=== PATIENT | female | born 1995 | race African-American/Black ===

== ENCOUNTER 2017-06-10 11:51 | Emergency (ER) | payer OTHER ==
[~2017-06-10] VITALS: Ht 160 cm; Wt 59.0 kg
[~2017-06-10 11:51] MED LIST: IBUPROFEN 400400 M1 PO; IBUPROFEN 600600 M1 PO; NAPROSYN500 MG PO; ULTRAM 50MG TAB50 MG PO; ZPAK PO
[2017-06-10 13:08] LABS: URINE BILIRUBIN NEGATIVE (Negative); URINE BLOOD NEGATIVE (Negative); URINE GLUCOSE-RANDOM* NEGATIVE (Negative); URINE KETONES NEGATIVE (Negative); URINE NITRITE NEGATIVE (Negative); URINE PROTEIN (DIPSTICK) NEGATIVE (Negative); URINE SPECIFIC GRAVITY <= 1.005 (1.003-1.035); URINE UROBILINOGEN 0.2 E.U./dl (0.2-1.0)
[2017-06-10 13:09] LABS: URINE COLOR YELLOW.
[2017-06-10 13:29] LABS: ABSOLUTE NEUTROPHILS 2.6 thou/uL (1.4-8.2); BASOPHILS 0.4 % (0.0-2.0); EOSINOPHILS 5.6 % (0.0-3.0); HEMATOCRIT 36.6 % (37.0-47.0); HEMOGLOBIN 11.7 gm/dL (12.0-15.0); LYMPHOCYTES 41.5 % (24.0-44.0); MANUAL DIFF NO; MCH 23.7 pg (26.0-34.0); MCHC 31.9 g/dL (28.0-37.0); MCV 74.3 fL (80.0-100.0); MONOCYTES 8.4 % (1.0-8.0); PLATELET COUNT 248 thou/uL (150-400); POLYS 44.1 % (36.0-66.0); RBC 4.92 mil/uL (4.20-5.00); RDW 16.6 % (10.5-14.5)
[2017-06-10 13:49] LABS: ANISOCYTOSIS 1+; MICROCYTES 2+; PLATELET ESTIMATE NORMAL
[2017-06-10 13:52] VITALS: BP 112/78
== END 2017-06-10 13:53 | disposition home or self-care (01) ==
LOC: ER 11:51
PROVIDERS: Nurse Practitioner
DX: J06.9 Acute upper respiratory infection, unspecified (principal)

== ENCOUNTER 2018-10-15 05:47 | Emergency (ER) | payer BC ==
[~2018-10-15] VITALS: Ht 157.5 cm; Wt 59.0 kg
[2018-10-15] MEDS ORDERED: MTERYTI COMBO1 EACH PO (05:58)
[2018-10-15] MEDS ORDERED: ZOFRAN 4 MG ORAL4 MG PO (07:28)
[2018-10-15 07:41] VITALS: BP 98/55
== END 2018-10-15 07:42 | disposition home or self-care (01) ==
LOC: ER 05:47
DX: O26.891 Other specified pregnancy related conditions, first trimester (principal); Z3A.12 12 weeks gestation of pregnancy; R51 Headache; R11.2 Nausea with vomiting, unspecified; F17.210 Nicotine dependence, cigarettes, uncomplicated

== ENCOUNTER 2019-07-06 20:24 | Emergency (ER) | payer OTHER ==
[~2019-07-06] VITALS: Ht 160 cm; Wt 74.8 kg
[~2019-07-06 20:24] MED LIST changes: +MTERYTI COMBO1 EACH PO; +ZOFRAN 4 MG ORAL4 MG PO
[2019-07-06 20:46] LABS: URINE BILIRUBIN NEGATIVE (Negative); URINE BLOOD NEGATIVE (Negative); URINE CLARITY SL CLOUDY; URINE COLOR YELLOW; URINE GLUCOSE-RANDOM* NEGATIVE (Negative); URINE KETONES NEGATIVE (Negative); URINE LEUKOCYTES TRACE (Negative); URINE NITRITE NEGATIVE (Negative); URINE PROTEIN (DIPSTICK) NEGATIVE (Negative); URINE SPECIFIC GRAVITY 1.015 (1.005-1.035); URINE UROBILINOGEN 0.2 E.U./dl (0.2-1.0)
[2019-07-06 21:07] LABS: HEMATOCRIT 38.8 % (37.0-47.0); HEMOGLOBIN 12.5 gm/dL (12.0-15.0); MCH 25.1 pg (26.0-34.0); MCHC 32.3 g/dL (28.0-37.0); MCV 77.9 fL (80.0-100.0); PLATELET COUNT 227 thou/uL (150-400); RBC 4.99 mil/uL (4.20-5.00); RDW 17.8 % (10.5-14.5); WBC 5.6 thou/uL (4.0-11.0)
[2019-07-06 21:14] LABS: CALCIUM 9.1 mg/dL (8.5-10.1); CREATININE 0.7 mg/dL (0.6-1.0)
[2019-07-06 21:20] LABS: ALBUMIN 3.8 g/dL (3.4-5.0); TOTAL BILIRUBIN 0.1 mg/dL (<0.1-1.0); TOTAL PROTEIN 7.5 g/dL (6.4-8.2)
[2019-07-06 22:30] LABS: ABSOLUTE NEUTROPHILS 2.4 thou/uL (1.4-8.2); PLATELET ESTIMATE NORMAL
[2019-07-07] MEDS ORDERED: NAPROSYN500 MG PO (00:46)
[2019-07-07 01:01] VITALS: BP 123/69
== END 2019-07-07 01:02 | disposition home or self-care (01) ==
LOC: ER 20:24
PROVIDERS: Emergency Medicine
DX: O90.89 Other complications of the puerperium, not elsewhere classified (principal); R10.30 Lower abdominal pain, unspecified; O99.335 Smoking (tobacco) complicating the puerperium; Z98.890 Other specified postprocedural states

== ENCOUNTER 2021-04-07 18:54 | Emergency (ER) | payer OTHER ==
[~2021-04-07] VITALS: Ht 160 cm; Wt 56.7 kg
[2021-04-07 22:54] LABS: URINE BILIRUBIN NEGATIVE (Negative); URINE BLOOD 2+ (Negative); URINE CLARITY CLEAR; URINE COLOR YELLOW; URINE GLUCOSE-RANDOM* NEGATIVE (Negative); URINE KETONES NEGATIVE (Negative); URINE LEUKOCYTES-REFLEX NEGATIVE (Negative); URINE NITRITE-REFLEX NEGATIVE (Negative); URINE PROTEIN (DIPSTICK) NEGATIVE (Negative); URINE SPECIFIC GRAVITY 1.015 (1.005-1.035); URINE UROBILINOGEN 0.2 E.U./dl (0.2-1.0)
[2021-04-07 23:02] LABS: ABSOLUTE NEUTROPHILS 3.2 thou/uL (1.4-8.2); BASOPHILS 0.9 % (0.0-2.0); EOSINOPHILS 3.6 % (0.0-3.0); HEMATOCRIT 37.6 % (37.0-47.0); HEMOGLOBIN 12.2 gm/dL (12.0-15.0); LYMPHOCYTES 38.6 % (24.0-44.0); MCH 27.2 pg (26.0-34.0); MCHC 32.5 g/dL (28.0-37.0); MCV 83.6 fL (80.0-100.0); MONOCYTES 7.4 % (1.0-8.0); PLATELET COUNT 240 thou/uL (150-400); POLYS 49.5 % (36.0-66.0); RBC 4.49 mil/uL (4.20-5.00); RDW 13.4 % (10.5-14.5); WBC 6.5 thou/uL (4.0-11.0)
[2021-04-07 23:10] LABS: BACTERIA-REFLEX 1-9 Few /HPF (None Seen); CASTS None Seen /LPF (None Seen); CRYSTALS None Seen /LPF (None Seen); MUCUS 0-3 Light strn/LPF (None Seen); SQUAMOUS 4-10 Moderate /LPF (0-3); URINE RBC 3-10 Few /HPF (NONE SEEN); URINE WBC-REFLEX 0-5 Rare /HPF (0-5)
[2021-04-07 23:10] LABS: CALCIUM 8.9 mg/dL (8.5-10.1); CREATININE 0.7 mg/dL (0.6-1.0); POTASSIUM 3.7 mmol/L (3.5-5.1)
[2021-04-07 23:16] LABS: ALBUMIN 3.4 g/dL (3.4-5.0); TOTAL BILIRUBIN 0.3 mg/dL (0.2-1.0); TOTAL PROTEIN 6.9 g/dL (6.4-8.2)
[2021-04-07] MEDS ORDERED: ZOFRAN ODT4 MG PO (23:27)
[2021-04-07 23:55] VITALS: BP 112/50
--- NOTE | 2021-04-08 07:39 | EKG ---
[facility] [place] [place] [address] ELECTROCARDIOGRAM REPORT Name: PRECIOUS MONROE Room #: [facility] JOVANA Baird#: [id number] Admission: 04/07/21 Attend Phys: Discharge: 04/07/21 Date of : [birth year] Report #: [id number] [facility] ED Test Date: 2021-04-07 Test Time: 19:26:37 Pat Name: PRECIOUS MONROE Department: Room: Gender: F Sales Development Representative: : 1995 Requested By: Ashlee Lubin Order Number: [id number] MD: Arsenio Gray Measurements Intervals [place] Rate: 80 P: 92 TN: 153 QRS: 86 QRSD: 74 T: 57 QT: 343 QTc: 396 Interpretive Statements Sinus rhythm ST elevation suggests acute pericarditis Compared to ECG 02/16/2014 20:39:29 ST (T wave) deviation now present Early repolarization no longer present Electronically Signed On 04-08-2021 7:39:33 CDT by Arsenio Gray [email or web address] <ELECTRONICALLY SIGNED> By: Arsenio Gray MD, [facility] 04/08/21 0739 D: [id number] Arsenio Gray MD, FACC /EPI
== END 2021-04-07 23:55 | disposition home or self-care (01) ==
LOC: ER 18:54
PROVIDERS: Emergency Medicine
DX: R42 Dizziness and giddiness (principal); R11.2 Nausea with vomiting, unspecified; F17.210 Nicotine dependence, cigarettes, uncomplicated; Z20.822 Contact with and (suspected) exposure to COVID-19; Z79.899 Other long term (current) drug therapy; Z98.890 Other specified postprocedural states

== ENCOUNTER 2021-09-24 12:40 | Emergency (ER) | payer OTHER ==
[~2021-09-24] VITALS: Ht 160 cm; Wt 54.9 kg
[~2021-09-24 12:40] MED LIST changes: +ZOFRAN ODT4 MG PO
[2021-09-24 13:52] VITALS: BP 118/70
== END 2021-09-24 14:33 | disposition home or self-care (01) ==
LOC: ER 12:40
DX: M79.5 Residual foreign body in soft tissue (principal); M79.644 Pain in right finger(s); F17.210 Nicotine dependence, cigarettes, uncomplicated

== ENCOUNTER 2021-10-25 10:21 | Emergency (ER) | payer OTHER ==
[~2021-10-25] VITALS: Ht 160 cm; Wt 56.2 kg
[2021-10-25 12:02] LABS: ABSOLUTE NEUTROPHILS 8.2 thou/uL (1.4-8.2); BASOPHILS 0.2 % (0.0-2.0); EOSINOPHILS 0.4 % (0.0-3.0); HEMATOCRIT 36.8 % (37.0-47.0); HEMOGLOBIN 12.3 gm/dL (12.0-15.0); LYMPHOCYTES 14.6 % (24.0-44.0); MCH 27.3 pg (26.0-34.0); MCHC 33.3 g/dL (28.0-37.0); MCV 81.8 fL (80.0-100.0); MONOCYTES 8.6 % (1.0-8.0); PLATELET COUNT 185 thou/uL (150-400); POLYS 76.2 % (36.0-66.0); RDW 13.6 % (10.5-14.5); URINE BILIRUBIN NEGATIVE (Negative); URINE BLOOD 2+ (Negative); URINE CLARITY CLOUDY; URINE COLOR YELLOW; URINE GLUCOSE-RANDOM* NEGATIVE (Negative); URINE KETONES NEGATIVE (Negative); URINE LEUKOCYTES-REFLEX 1+ (Negative); URINE NITRITE-REFLEX POSITIVE (Negative); URINE PROTEIN (DIPSTICK) TRACE (Negative); URINE SPECIFIC GRAVITY >= 1.030 (1.005-1.035); URINE UROBILINOGEN 0.2 E.U./dl (0.2-1.0); WBC 10.8 thou/uL (4.0-11.0)
[2021-10-25 12:07] LABS: CALCIUM 8.8 mg/dL (8.5-10.1); CREATININE 0.8 mg/dL (0.6-1.0); POTASSIUM 3.8 mmol/L (3.5-5.1)
[2021-10-25 12:14] LABS: ALBUMIN 3.7 g/dL (3.4-5.0); TOTAL BILIRUBIN 0.3 mg/dL (0.2-1.0)
[2021-10-25 12:29] LABS: SQUAMOUS >10 Many /LPF (0-3)
[2021-10-25 12:30] LABS: AMORPHOUS URATES Few /LPF (None Seen); CASTS None Seen /LPF (None Seen); URINE RBC 3-10 Few /HPF (NONE SEEN); URINE WBC-REFLEX >25 Many /HPF (0-5)
[2021-10-25] MEDS ORDERED: CEPHALEXIN500 MG PO (12:40)
[2021-10-25] MEDS ORDERED: METRONIDAZOLE500 M4 PO (12:40)
[2021-10-25 13:30] VITALS: BP 105/49
== END 2021-10-25 13:31 | disposition home or self-care (01) ==
LOC: ER 10:21
PROVIDERS: Emergency Medicine
DX: N39.0 Urinary tract infection, site not specified (principal); K59.00 Constipation, unspecified; A59.01 Trichomonal vulvovaginitis; F17.210 Nicotine dependence, cigarettes, uncomplicated; Z98.890 Other specified postprocedural states; Z79.899 Other long term (current) drug therapy